=== PATIENT | female | born 1940 | race Hispanic/Latino ===

== ENCOUNTER 2017-09-14 17:14 | Emergency (ER) | payer OTHER | END 2017-09-14 18:17 | disposition home or self-care (01) | LOC: EDH 17:14 | DX: L02.413 Cutaneous abscess of right upper limb (principal); E11.9 Type 2 diabetes mellitus without complications; I10 Essential (primary) hypertension; E78.5 Hyperlipidemia, unspecified | CPT/HCPCS: 10060 ==